=== PATIENT | male | born 1955 | race African-American/Black ===

== ENCOUNTER 2017-09-12 19:54 | Inpatient (IN) | payer OTHER ==
[2017-09-12 20:36] LABS: Bilirubin Negative (Negative); Blood, Urine Small (Negative); Clarity CLEAR (Clear); Glucose, Urine (Dipstick) Negative (Negative); Leukocyte Large (Negative); Nitrite Negative (Negative); Protein, Urine (Dipstick) Negative (Neg-Trace); pH, Urine 5.5 (5.0-9.0)
[2017-09-12 20:38] LABS: Bacteria/HPF None Seen HPF (None Seen); Hyaline Casts/LPF 7-10 HYALINE CAST LPF (0-3 Hyaline); Pathc Cast-AUWi Flag 2.03 (0-2.49); RBC/HPF 0-3 HPF (0-3); Squamous Epithelial 0-3 HPF (0-3); WBC/HPF 21-50 HPF (0-3)
--- NOTE | 2017-09-12 21:08 | RAD ---
PORTABLE AP CHEST X-RAY: 09/12/17 HISTORY: Altered mental status. FINDINGS: The cardiac silhouette and pulmonary vasculature are within normal limits. The lungs are clear. Greer us structures are intact. IMPRESSION: No acute cardiopulmonary process. POS: BOOGIEH
[2017-09-12] MEDS ORDERED: Benztropine Mesylate 2 MG/2 ML VIAL IVP SCH ×2 (21:30)
[2017-09-12] MEDS ORDERED: cefTRIAXone\\ROCEPHIN 2 GM in Sodium Chloride 0.9% 100 ML IVPB SCH (21:30)
[2017-09-12 21:34] LABS: ALT (SGPT) 25 U/L (8-55); AST (SGOT) 39 U/L (5-34); Alkaline Phosphatase 97 U/L (40-150); Anion Gap 15 mmol/L (10-20); BUN (Urea Nitrogen) 11 mg/dL (8.4-25.7); Bilirubin, Total 1.1 mg/dL (0.2-1.2); CK (CPK) 733 U/L (30-200); Calc. Creatinine Clearance 0 mL/min (70-130); Calcium 9.2 mg/dL (7.8-10.44); Carbon Dioxide 22 mmol/L (22-29); Chloride 107 mmol/L (98-107); Estimated GFR-MDRD 82; Globulin 2.9 g/dL (2.4-3.5); Glucose 80 mg/dL (70-105); Potassium 4.1 mmol/L (3.5-5.1); Protein, Total 6.9 g/dL (6.0-8.3); Sodium 140 mmol/L (136-145)
[2017-09-12 21:37] LABS: CKMB 4.8 ng/mL (0-6.6)
[2017-09-12 21:41] LABS: Band 2 % (5-11); Eosinophils 4 % (0-10); Hemoglobin 13.1 g/dL (14.0-18.0); Lymphocytes 25 % (21-51); MDiff Complete? YES; Macrocytosis SLIGHT = 6-15 cells (100X) (0-5/hpf); Mean Corpuscular HGB CONC 33.6 g/dL (32.0-36.0); Mean Corpuscular Hemoglobin 31.9 pg (27.0-31.0); Mean Corpuscular Volume 94.9 fl (80.0-94.0); Mean Platelet Volume 7.5 fL (7.4-10.4); Monocytes 4 % (0-10); Neutrophil 65 % (42-75); PLT Morphology Comment Appears Adequate; Platelet Count 147 thou/uL (130-400); Red Blood Cell (RBC) Count 4.11 mill/uL (4.70-6.10); White Blood Cell (WBC) Count 8.4 thou/uL (4.8-10.8)
[2017-09-12 21:44] LABS: Troponin I 0.031 ng/mL (< 0.028)
--- NOTE | 2017-09-12 21:45 | CT ---
EXAM: NONCONTRAST HEAD CT 09/12/17 HISTORY: Altered mental status. COMPARISON: None. TECHNIQUE: Noncontrast head CT is performed from skull base to skull vertex. FINDINGS: Note is made of a cavum septum pellucidum and cavum vergae. Ventricular system has an upper normal ap pearance. No evidence of hydrocephalus. No parenchymal hemorrhage. No extra-axial hematoma. No midlin e shift. Basilar cisterns are patent. Brain volume is age appropriate. Cortical mann-white matter dif ferentiation is preserved. Cavernous carotid atherosclerosis is noted. Calvarium is intact. Adequate aeration of the sinuses and mastoid air cells. IMPRESSION: No acute intracranial process. POS: PPP
[2017-09-13] MEDS ORDERED: Sodium Chloride 0.9% 1,000 ML IV SCH (00:09)
[2017-09-13] MEDS ORDERED: Ondansetron HCl/PF 4 MG/2 ML Vial IVP PRN (00:09)
[2017-09-13] MEDS ORDERED: Ondansetron ODT 4 MG TAB SL PRN (00:09)
[2017-09-13 00:48] LABS: Troponin I 0.034 ng/mL (< 0.028)
[2017-09-13 01:36] LABS: Lactic Acid 0.9 mmol/L (0.5-2.2)
[2017-09-13] MEDS ORDERED: Acetaminophen 650 MG Suppository PR PRN (02:50)
[2017-09-13] MEDS ORDERED: Senokot 8.6 MG TAB PO PRN (02:50)
[2017-09-13] MEDS ORDERED: Acetaminophen 325 MG TAB PO PRN (02:50)
[2017-09-13] MEDS ORDERED: Nitroglycerin 0.4 MG TAB (25 Tab Bottle) PO PRN (02:50)
[2017-09-13] MEDS ORDERED: Bisacodyl 10 MG SUPP PR PRN (02:50)
[2017-09-13 03:11] LABS: #Eosinphils 0.5 thou/uL (0.0-0.7); #Lymphocytes 2.1 thou/uL (1.20-3.40); #Monocytes 0.6 thou/uL (0.11-0.59); #Neutrophils 3.9 thou/uL (1.40-6.50); %Basophils 0.7 % (0.0-1.0); %Eosinophils 6.7 % (0.0-10.0); %Lymphocytes 29.3 % (21.0-51.0); %Monocytes 8.5 % (0.0-10.0); %Neutrophils 54.9 % (42.0-75.0); Hemoglobin 11.4 g/dL (14.0-18.0); Mean Corpuscular HGB CONC 34.6 g/dL (32.0-36.0); Mean Corpuscular Hemoglobin 32.3 pg (27.0-31.0); Mean Corpuscular Volume 93.1 fl (80.0-94.0); Mean Platelet Volume 6.7 fL (7.4-10.4); Platelet Count 146 thou/uL (130-400); RBC Distribution Width 10.8 % (11.5-14.5); Red Blood Cell (RBC) Count 3.53 mill/uL (4.70-6.10)
--- NOTE | 2017-09-13 03:23 | HP ---
DATE OF ADMISSION: 09/13/2017 Patient was seen and examined on 09/13/2017 PRIMARY CARE PHYSICIAN: Dr. Marie at [facility]. CHIEF COMPLAINT: Altered mentation. HISTORY OF PRESENT ILLNESS: Patient is a 62-year-old male with Parkinson disease, schizoaffective disorder, chronic indwelling Neal catheter presented by EMS with altered mentation that has been ongoing for last 2-3 weeks. Patient had multiple falls. He is not eating and drinking. He has been lethargic and more stiff than usual. Due to poor oral intake, there has been ongoing plans for PEG tube feeding. At this time, there is no family at the bedside. History obtained from the review of ER records. In the emergency room, his initial vital signs showed temperature 99.6, respirations 20, pulse of 85 with blood pressure of 133/77 with O2 saturation of 97% on room air. His urinalysis showed 21-50 wbc's with large amount of leukocyte esterase. Troponins were in the indeterminate range at 0.031 with CK of 733. WBC was normal at 8.4. He received IV fluids, Rocephin, and Cogentin in the emergency room. PAST MEDICAL HISTORY: 1. Schizoaffective disorder. 2. Depression. 3. History of UTIs. 4. Parkinson disease. 5. Hyperlipidemia. 6. Chronic indwelling Neal catheter for urinary retention. 7. Chronic constipation. 8. Hyperlipidemia. PAST SURGICAL HISTORY: Suprapubic catheter placement. ALLERGIES: No known drug allergies. CURRENT HOME MEDICATIONS: Per longterm record Lexapro 10 mg at bedtime, Haldol 2.5 mg at bedtime. Please note that Haldol dose was reduced 2 days ago from 5 mg. Omeprazole 20 mg daily, simvastatin 20 mg at bedtime, DuoNebs as needed, lactulose as needed, Senokot as needed, Keflex 500 mg t.i.d. for recently diagnosed UTI, Cogentin 0.5 b.i.d. SOCIAL HISTORY: Patient currently lives in a long-term facility. No smoking, alcohol, drug use reported. FAMILY HISTORY AND REVIEW OF SYSTEMS: Cannot be obtained from the patient due to current cognitive status. PHYSICAL EXAMINATION: VITAL SIGNS: As discussed above. GENERAL: A 62-year-old male with altered mentation. Not following commands. HEENT: Head atraumatic, normocephalic. Sclerae anicteric. Dry mucous membrane. No oral lesion. NECK: Supple. No JVD, no carotid bruit. LUNGS: Clear to auscultation bilaterally. No wheezing, rales, or rhonchi. HEART: S1, S2 present, irregularly irregular. No murmur, rubs, or gallops. ABDOMEN: Soft. Bowel sounds present. No rebound or guarding. EXTREMITIES: No edema or calf tenderness. NEUROLOGIC: There is generalized hypertonia. Patient is alert and awake. He is not following any verbal commands. Rest of the neurological and psychiatry examination could not be done due to current cognitive status. SKIN: Warm and dry. LYMPH NODES: No palpable lymph nodes in the neck. PERIPHERAL VASCULAR: Radial pulses palpable bilaterally, low volume. LABORATORY FINDINGS: As discussed above. CK was 733. Chest x-ray by my review was negative for infiltrates. CT scan of the brain was negative for acute findings. EKG by my review showed SR with PACs/nonspecific ST-T wave changes. IMPRESSION: 1. Toxic metabolic encephalopathy, suspected secondary to catheter-associated urinary tract infection and dehydration. 2. Chronic kidney disease, stage 2. 3. Elevated troponins in the indeterminate range, probably secondary to dehydration. 4. Elevated CK, probably secondary to recurrent falls. 5. 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 Patient also has history of Parkinsonism. 6. Chronic anemia, microcytic. 7. Hyperlipidemia. 8. History of chronic constipation. PLAN: Patient will be monitored on the telemetry unit. An echocardiogram will be obtained due to elevated troponins as well as new-onset atrial fibrillation. We will hold anticoagulation for now until discussed with the family. Empiric antibiotics will be started for urinary tract infection. We will trend the troponins. We will resume home medications and hope that patient will tolerate p.o. Vital signs q.4 hourly. Patient will benefit from Neurology consultation if his mentation does not improve over the next 24 hours. We will discuss the plan of care with the family when they arrive. CODE STATUS: FULL CODE per longterm records. MTDD
[2017-09-13 03:34] LABS: Troponin I 0.041 ng/mL (< 0.028)
[2017-09-13] MEDS: Sodium Chloride 0.9% 1,000 ML IV SCH ×2 (03:38→14:22)
[2017-09-13 03:48] LABS: ALT (SGPT) 21 U/L (8-55); AST (SGOT) 31 U/L (5-34); Albumin 3.7 g/dL (3.5-5.0); Alkaline Phosphatase 83 U/L (40-150); Anion Gap 11 mmol/L (10-20); BUN (Urea Nitrogen) 10 mg/dL (8.4-25.7); Bilirubin, Total 0.9 mg/dL (0.2-1.2); Calc. Creatinine Clearance 73 mL/min (70-130); Calcium 8.6 mg/dL (7.8-10.44); Carbon Dioxide 24 mmol/L (22-29); Chloride 108 mmol/L (98-107); Estimated GFR-MDRD 90; Globulin 2.1 g/dL (2.4-3.5); Glucose 75 mg/dL (70-105); Magnesium 1.7 mg/dL (1.6-2.6); Phosphorus 2.4 mg/dL (2.3-4.7); Potassium 3.3 mmol/L (3.5-5.1); Protein, Total 5.8 g/dL (6.0-8.3); Sodium 140 mmol/L (136-145)
[2017-09-13 04:28] LABS: Folate (Folic Acid) 12.5 ng/mL (7.0-31.4)
[2017-09-13] MEDS: Enoxaparin Sodium 30 MG/0.3 ML SYRINGE SC SCH (08:37)
[2017-09-13] MEDS: cefTRIAXone\\ROCEPHIN 1 GM in Sodium Chloride 0.9% 10 ML SLOW IVP SCH (08:37)
[2017-09-13] MEDS: Famotidine/PF 20 mg/2ml Vial SLOW IVP SCH ×2 (08:41→20:55)
[2017-09-13] MEDS ORDERED: cefTRIAXone\\ROCEPHIN 2 GM in Sodium Chloride 0.9% 100 ML IVPB SCH (09:00)
[2017-09-13] MEDS: Saccharomyces boulardii 250 MG CAP PO SCH (09:02)
[2017-09-13] MEDS: Docusate 100 MG CAP PO SCH ×2 (09:02→23:36)
[2017-09-13] MEDS: Aspirin 325 MG TAB PO SCH (09:02)
--- NOTE | 2017-09-13 11:06 | CON ---
DATE OF CONSULTATION: 09/13/2017 HISTORY OF PRESENT ILLNESS: This is a 62-year-old gentleman with a history of psychiatric issues as well as some parkinsonian features. He was previously seen by Dr. Benito in 03/2016 for mental status changes. The patient apparently is a [place] [facility] resident. He has not been responding to the staff and is appropriate at his usual level. He was not been eating or drinking well. He was brought in for possible dehydration. Since admission, he has not had any unusual physical events. His vital si gns have been stable. He has been afebrile. He is lying in bed, awake, holding onto the bed rail. He was nonverbal. His tone is symmetric. His face appears to be symmetric. He has some spontaneous movements bilaterally. No tremors or myoclonus were noted. He had a CT scan of the brain done, which did not show any acute changes. LABORATORY STUDIES: Showed a normal white count and serum chemistries. SUMMARY: This is a 62-year-old gentleman with psychiatric issues and variable responsiveness documen pauly in the past. I do not see any acute issues with him. There was some discussion as to whether a PEG tube needs to be placed, which would seem to be appropriate given his ongoing dementia or psychia tric problems that cause anorexia. I do not see any other treatment that needs to be instituted at t his point.
--- NOTE | 2017-09-13 14:08 | PDOC.PN ---
- Subjective Encounter Start Date: 09/13/17 Encounter Start Time: 10:30 Subjective: awake, not oriented -: does not follow verbal stimuli - Objective Resuscitation Status: Resuscitation Status FULL:Full Resuscitation MAR Reviewed: Yes Vital Signs & Weight: Vital Signs (12 hours) Temp Pulse Resp BP BP Pulse Ox 09/13/17 11:54 98.3 F 83 16 112/65 96 09/13/17 08:00 98.3 F 83 16 128/63 98 09/13/17 04:00 97.9 F 82 16 120/59 L 98 Weight Weight 159 lb 4.8 oz I&O: 09/12/17 09/13/17 09/14/17 06:59 06:59 06:59 Intake Total 634 Output Total 525 Balance 109 Result Diagrams: 09/13/17 03:02 09/13/17 03:02 Phys Exam - Physical Examination HEENT: PERRLA, sclera anicteric Neck: no JVD, supple Respiratory: no wheezing, no rales Cardiovascular: RRR, no significant murmur Gastrointestinal: soft, non-tender, positive bowel sounds Musculoskeletal: no edema, pulses present Neurological: non-focal has increased tone in all 4 extremities Dx/Plan (1) Rhabdomyolysis Code(s): M62.82 - RHABDOMYOLYSIS Status: Acute Qualifiers: Encounter type: subsequent encounter (2) UTI (urinary tract infection) Status: Acute Qualifiers: Urinary tract infection type: catheter-associated UTI (3) Demand ischemia of myocardium Code(s): I24.8 - OTHER FORMS OF ACUTE ISCHEMIC HEART DISEASE Status: Acute (4) Afib Code(s): I48.91 - UNSPECIFIED ATRIAL FIBRILLATION Status: Chronic Qualifiers: Atrial fibrillation type: chronic Qualified Code(s): I48.2 - Chronic atrial fibrillation (5) Encephalopathy acute Code(s): G93.40 - ENCEPHALOPATHY, UNSPECIFIED Status: Acute Comment: metabolic encephalopathy (6) FTT (failure to thrive) in adult Status: Chronic (7) Schizophrenia Code(s): F20.9 - SCHIZOPHRENIA, UNSPECIFIED Status: Chronic Qualifiers: Schizophrenia type: unspecified Qualified Code(s): F20.9 - Schizophrenia, unspecified (8) Hyperlipidemia Code(s): E78.5 - HYPERLIPIDEMIA, UNSPECIFIED Status: Chronic Qualifiers: Hyperlipidemia type: unspecified Qualified Code(s): E78.5 - Hyperlipidemia , unspecified (9) Dehydration Code(s): E86.0 - DEHYDRATION Status: Acute - Plan d/w .Juliana LUA, gave a full update of labs and plan -: gentle hydration -: is on ceftriaxone, full dose aspirin -: pt has been bedbound from atleast 2 yrs per family, he also has issues with * . -swallowing and family is contemplating peg tube. Will get speech consult when he is more alert/awake Pt at baseline responds by blinking his eyes/few words. Review of Systems - Medications/Allergies Allergies/Adverse Reactions: Allergies Allergy/AdvReac Type Severity Reaction Status Date / Time No Known Allergies Allergy Unverified 03/25/16 17:43 Medications: Current Medications Acetaminophen (Tylenol) 650 mg PO Q4H PRN PRN Reason: Headache/Fever or Pain Acetaminophen (Tylenol) 650 mg [place] Q4H PRN PRN Reason: Headache/Fever or Pain Albuterol/Ipratropium (Duoneb) 3 ml NEB QID PRN PRN Reason: SOB wheezing Aspirin (Aspirin) 325 mg PO DAILY [facility] Last Admin: 09/13/17 09:02 Dose: Not Given Bisacodyl (Dulcolax) 10 mg [place] Q24H PRN PRN Reason: Constipation Docusate Sodium (Colace) 100 mg PO BID [facility] Last Admin: 09/13/17 09:02 Dose: Not Given Enoxaparin Sodium (Lovenox) 30 mg SC 0900 [facility] Last Admin: 09/13/17 08:37 Dose: 30 mg Famotidine (Pepcid) 20 mg SLOW IVP Q12HR [facility] Last Admin: 09/13/17 08:41 Dose: 20 mg Ceftriaxone Sodium 1 gm/ (Sodium Chloride) 10 mls @ 120 mls/hr SLOW IVP DAILY [facility] Last Admin: 09/13/17 08:37 Dose: 10 mls Sodium Chloride (Normal Saline 0.9%) 1,000 mls @ 75 mls/hr IV .[id number] [facility] Last Admin: 09/13/17 03:38 Dose: Not Given Influenza Virus Vaccine (Fluzone Quad [id number] Syringe) 0.5 ml IM .ONCE ONE Stop: 09/14/17 09:01 Nitroglycerin (Nitrostat) 0.4 mg PO Q5MIN PRN PRN Reason: Chest Pain Saccharomyces Boulardii (Florastor) 250 mg PO DAILY [facility] Last Admin: 09/13/17 09:02 Dose: Not Given Senna (Senokot) 2 tab PO HSPRN PRN PRN Reason: Constipation Sodium Chloride (Flush - Normal Saline) 10 ml IVF Q12HR [facility] Last Admin: 09/13/17 09:02 Dose: 10 ml Sodium Chloride (Flush - Normal Saline) 10 ml IVF PRN PRN PRN Reason: Saline Flush
[2017-09-14] MEDS: Sodium Chloride 0.9% 1,000 ML IV SCH (03:58)
[2017-09-14 06:31] LABS: #Eosinphils 0.3 thou/uL (0.0-0.7); #Lymphocytes 1.4 thou/uL (1.20-3.40); #Monocytes 0.4 thou/uL (0.11-0.59); #Neutrophils 2.9 thou/uL (1.40-6.50); %Basophils 0.7 % (0.0-1.0); %Eosinophils 5.9 % (0.0-10.0); %Lymphocytes 27.2 % (21.0-51.0); %Monocytes 8.5 % (0.0-10.0); %Neutrophils 57.6 % (42.0-75.0); Hemoglobin 10.8 g/dL (14.0-18.0); Mean Corpuscular HGB CONC 32.8 g/dL (32.0-36.0); Mean Corpuscular Hemoglobin 31.5 pg (27.0-31.0); Mean Corpuscular Volume 95.8 fl (80.0-94.0); Mean Platelet Volume 7.6 fL (7.4-10.4); Platelet Count 153 thou/uL (130-400); RBC Distribution Width 10.9 % (11.5-14.5); Red Blood Cell (RBC) Count 3.43 mill/uL (4.70-6.10)
[2017-09-14 06:46] LABS: ALT (SGPT) 18 U/L (8-55); AST (SGOT) 22 U/L (5-34); Albumin 3.5 g/dL (3.5-5.0); Alkaline Phosphatase 77 U/L (40-150); Anion Gap 15 mmol/L (10-20); BUN (Urea Nitrogen) 13 mg/dL (8.4-25.7); Bilirubin, Total 0.9 mg/dL (0.2-1.2); CK (CPK) 237 U/L (30-200); Calc. Creatinine Clearance 63 mL/min (70-130); Calcium 8.3 mg/dL (7.8-10.44); Carbon Dioxide 20 mmol/L (22-29); Chloride 112 mmol/L (98-107); Estimated GFR-MDRD 75; Globulin 2.1 g/dL (2.4-3.5); Magnesium 1.8 mg/dL (1.6-2.6); Phosphorus 2.7 mg/dL (2.3-4.7); Potassium 3.5 mmol/L (3.5-5.1); Protein, Total 5.6 g/dL (6.0-8.3); Sodium 143 mmol/L (136-145)
[2017-09-14 06:51] LABS: Glucose 54 mg/dL (70-105)
[2017-09-14] MEDS ORDERED: Dextrose 50% Abboject 50 ML SYRINGE ONE (06:57)
[2017-09-14] MEDS ORDERED: FLU VACC QS2017-18 36 mo. & older 0.5 ML SYRINGE IM ONE (09:00)
[2017-09-14] MEDS: Aspirin 325 MG TAB PO SCH (09:49)
[2017-09-14] MEDS: Famotidine/PF 20 mg/2ml Vial SLOW IVP SCH ×2 (09:50→22:08)
[2017-09-14] MEDS: Enoxaparin Sodium 30 MG/0.3 ML SYRINGE SC SCH (09:53)
[2017-09-14] MEDS: Docusate 100 MG CAP PO SCH ×2 (09:54→22:07)
[2017-09-14] MEDS: Saccharomyces boulardii 250 MG CAP PO SCH (09:54)
[2017-09-14] MEDS: cefTRIAXone\\ROCEPHIN 1 GM in Sodium Chloride 0.9% 10 ML SLOW IVP SCH (09:56)
[2017-09-14] MEDS: D5 1/2 NS w/20 mEq KCL 1,000 ML IV SCH ×2 (10:20→22:09)
--- NOTE | 2017-09-14 18:18 | PDOC.PN ---
- Subjective Encounter Start Date: 09/14/17 Encounter Start Time: 10:30 Patient seen and examined. No change in mentation. No overnight events - Objective Resuscitation Status: Resuscitation Status FULL:Full Resuscitation MAR Reviewed: Yes Vital Signs & Weight: Vital Signs (12 hours) Temp Pulse Resp BP BP Pulse Ox 09/14/17 16:48 98.6 F 75 129/74 09/14/17 16:46 98.6 F 75 129/74 09/14/17 12:00 74 16 142/70 H 09/14/17 08:00 98.4 F 77 16 106/63 96 Weight Weight 149 lb 2 oz I&O: 09/13/17 09/14/17 09/15/17 06:59 06:59 06:59 Intake Total 634 900 Output Total 525 250 Balance 109 650 Result Diagrams: 09/14/17 05:56 09/14/17 05:56 Additional Labs: Accuchecks 09/14/17 14:24 POC Glucose 75 EKG Reviewed by me: Yes (Tele SR) Phys Exam - Physical Examination Constitutional: NAD Respiratory: no wheezing, no rhonchi Cardiovascular: RRR, no rub Gastrointestinal: soft, positive bowel sounds Musculoskeletal: no edema Neuro/Psych - No changes Dx/Plan - Plan plan discussed w/ family, DVT proph w/lovenox, DVT proph w/SCDs IMPRESSION: 1. Toxic metabolic encephalopathy, suspected secondary to catheter-associated urinary tract infection and dehydration. 2. Chronic kidney disease, stage 2 / Hypokalemia / Hypoglycemia 3. Elevated troponins in the indeterminate range, probably secondary to dehydration. 4. Elevated CK, probably secondary to recurrent falls. improving 5. 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 6. Chronic anemia, microcytic. 7. Hyperlipidemia. 8. History of chronic constipation / Probably Moderate PEM PLAN: * Change IV fluid to D5 1/2 NS due to hypoglycemia * Add glucose check Q6h * AM labs * Cont current meds as below * Neuro input appreciated * NPO per JIG INSPECTOR * Consult GI for PEG per family request * Consult Palliative care Review of Systems - Review of Systems Cardiovascular: other. negative: chest pain, palpitations, orthopnea, paroxysmal nocturnal dyspnea, edema, light headedness Gastrointestinal: negative: Nausea, Vomiting, Abdominal Pain, Diarrhea, Constipation, Melena, Hematochezia - Medications/Allergies Allergies/Adverse Reactions: Allergies Allergy/AdvReac Type Severity Reaction Status Date / Time No Known Allergies Allergy Unverified 03/25/16 17:43 Medications: Current Medications Acetaminophen (Tylenol) 650 mg PO Q4H PRN PRN Reason: Headache/Fever or Pain Acetaminophen (Tylenol) 650 mg [place] Q4H PRN PRN Reason: Headache/Fever or Pain Albuterol/Ipratropium (Duoneb) 3 ml NEB QID PRN PRN Reason: SOB wheezing Aspirin (Aspirin) 325 mg PO DAILY [facility] Last Admin: 09/14/17 09:49 Dose: Not Given Bisacodyl (Dulcolax) 10 mg [place] Q24H PRN PRN Reason: Constipation Docusate Sodium (Colace) 100 mg PO BID [facility] Last Admin: 09/14/17 09:54 Dose: Not Given Enoxaparin Sodium (Lovenox) 30 mg SC 0900 [facility] Last Admin: 09/14/17 09:53 Dose: 30 mg Famotidine (Pepcid) 20 mg SLOW IVP Q12HR [facility] Last Admin: 09/14/17 09:50 Dose: 20 mg Ceftriaxone Sodium 1 gm/ (Sodium Chloride) 10 mls @ 120 mls/hr SLOW IVP DAILY [facility] Last Admin: 09/14/17 09:56 Dose: 10 mls Potassium Chloride/Dextrose/Sod Cl (D5 1/2 Ns W/20 Meq Kcl) 1,000 mls @ 75 mls/ hr IV .[id number] [facility] Last Admin: 09/14/17 10:20 Dose: 1,000 mls Nitroglycerin (Nitrostat) 0.4 mg PO Q5MIN PRN PRN Reason: Chest Pain Saccharomyces Boulardii (Florastor) 250 mg PO DAILY [facility] Last Admin: 09/14/17 09:54 Dose: Not Given Senna (Senokot) 2 tab PO HSPRN PRN PRN Reason: Constipation Sodium Chloride (Flush - Normal Saline) 10 ml IVF Q12HR [facility] Last Admin: 09/14/17 09:53 Dose: 10 ml Sodium Chloride (Flush - Normal Saline) 10 ml IVF PRN PRN PRN Reason: Saline Flush
[2017-09-15 06:02] LABS: #Eosinphils 0.3 thou/uL (0.0-0.7); #Lymphocytes 1.6 thou/uL (1.20-3.40); #Monocytes 0.5 thou/uL (0.11-0.59); #Neutrophils 2.7 thou/uL (1.40-6.50); %Basophils 0.5 % (0.0-1.0); %Eosinophils 6.5 % (0.0-10.0); %Lymphocytes 31.4 % (21.0-51.0); %Monocytes 9.6 % (0.0-10.0); Hemoglobin 11.8 g/dL (14.0-18.0); Mean Corpuscular HGB CONC 32.6 g/dL (32.0-36.0); Mean Corpuscular Hemoglobin 30.4 pg (27.0-31.0); Mean Corpuscular Volume 93.1 fl (80.0-94.0); Mean Platelet Volume 7.7 fL (7.4-10.4); Platelet Count 170 thou/uL (130-400); RBC Distribution Width 10.7 % (11.5-14.5); White Blood Cell (WBC) Count 5.1 thou/uL (4.8-10.8)
[2017-09-15 06:11] LABS: Anion Gap 12 mmol/L (10-20); BUN (Urea Nitrogen) 9 mg/dL (8.4-25.7); Calc. Creatinine Clearance 62 mL/min (70-130); Carbon Dioxide 22 mmol/L (22-29); Chloride 110 mmol/L (98-107); Estimated GFR-MDRD 74; Glucose 85 mg/dL (70-105); Potassium 3.8 mmol/L (3.5-5.1); Sodium 140 mmol/L (136-145)
[2017-09-15] MEDS: Saccharomyces boulardii 250 MG CAP PO SCH (07:04)
[2017-09-15] MEDS: Aspirin 325 MG TAB PO SCH (07:04)
[2017-09-15] MEDS: Docusate 100 MG CAP PO SCH ×2 (07:04→20:53)
[2017-09-15] MEDS: cefTRIAXone\\ROCEPHIN 1 GM in Sodium Chloride 0.9% 10 ML SLOW IVP SCH (09:24)
[2017-09-15] MEDS: Enoxaparin Sodium 30 MG/0.3 ML SYRINGE SC SCH (09:25)
[2017-09-15] MEDS: D5 1/2 NS w/20 mEq KCL 1,000 ML IV SCH (09:25)
[2017-09-15] MEDS: Famotidine/PF 20 mg/2ml Vial SLOW IVP SCH ×2 (09:25→20:53)
[2017-09-15] MEDS ORDERED: Midazolam HCl 2 mg/2 ml Vial ONE (12:35)
[2017-09-15] MEDS ORDERED: Fleet Enema 133 ML BOT PR SCH (12:45)
--- NOTE | 2017-09-15 13:05 | OP ---
DATE OF PROCEDURE: 09/15/2017 SURGEON: Mark Dillard M.D. PREOPERATIVE DIAGNOSES: 1. Poor p.o. intake. 2. PEG tube request has been apparently an issue for several weeks now. Patient has been seen at [facility] and there were plans for an outpatient PEG tube placement. POSTOPERATIVE DIAGNOSES: 1. Normal esophagus. 2. Normal stomach. 3. Normal duodenum to the third portion. 4. PEG tube placed by Ponsky pull technique. 5. Rectal exam was performed showed a large soft fecal impaction. RECOMMENDATIONS: Can begin tube feeds today in 4 hours. Can use PEG for feeding now. The patient n eeds enemas and bowel regimen for impaction. ANESTHESIA: TIVA. PROCEDURE IN DETAIL: After the patient's family was informed of the risks, benefits and possible com plications of endoscopy including perforation, bleeding, reaction to medication, and aspiration, info rmed consent was obtained. The patient was brought to the endoscopy suite where he was sedated in a gradual fashion. Once this was performed, a rectal exam was performed which was normal except for a large soft fecal impaction. Gloves were changed and the upper endoscopy was performed with findings of a normal esophagus, stomach, and duodenum. Adequate place for PEG tube was identified by transill umination and finger indentation. Abdomen was prepped and draped in the usual sterile fashion. A PE G tube placed, by Ponsky pull technique. The scope was removed. The patient tolerated the procedure well with no complications.
[2017-09-15] MEDS ORDERED: Propofol 200 MG/20 ML VIAL ONE (16:02)
--- NOTE | 2017-09-15 18:21 | EKG ---
Test Reason : Blood Pressure : / mmHG Vent. Rate : 082 BPM Atrial Rate : 141 BPM P-R Int : 000 ms QRS Dur : 122 ms QT Int : 412 ms P-R-T Axes : 000 097 073 degrees QTc Int : 481 ms Atrial fibrillation with a competing junctional pacemaker with premature ventricular or aberrantly co nducted complexes Right bundle branch block Abnormal ECG No previous ECGs available Confirmed by AYALA MCWILLIAMS, DR. Alfred ([id number]) on 09/15/2017 6:20:58 PM Referred By: CARI Confirmed By:DR. Aubrie CAI MD
--- NOTE | 2017-09-15 20:26 | PDOC.PN ---
- Subjective Encounter Start Date: 09/15/17 Encounter Start Time: 10:00 Patient seen and examined. No significant change in mentation. No overnight events - Objective Resuscitation Status: Resuscitation Status FULL:Full Resuscitation MAR Reviewed: Yes Vital Signs & Weight: Vital Signs (12 hours) Temp Pulse Resp BP BP Pulse Ox 09/15/17 15:56 98.1 F 74 18 132/76 99 09/15/17 13:11 97.1 F L 80 16 101/63 97 Weight Admit Weight 148 lb 8 oz Weight 142 lb 4.8 oz I&O: 09/14/17 09/15/17 09/16/17 06:59 06:59 06:59 Intake Total 900 1800 Output Total 250 1600 1375 Balance 650 200 -1375 Result Diagrams: 09/15/17 05:18 09/15/17 05:18 Additional Labs: Accuchecks 09/15/17 09/15/17 09/14/17 16:27 11:07 16:36 POC Glucose 88 93 80 09/14/17 09/14/17 09/14/17 14:39 11:31 07:23 POC Glucose 75 80 208 H EKG Reviewed by me: Yes (Tele SR) Phys Exam - Physical Examination Constitutional: NAD Respiratory: no wheezing, no rhonchi Cardiovascular: RRR, no rub Gastrointestinal: soft, non-tender, positive bowel sounds Musculoskeletal: no edema Neuro/Psych - Cannot assess due to current mentation Dx/Plan - Plan continue antibiotics, social work lecturer, speech therapy, DVT proph w/SCDs IMPRESSION: 1. Toxic metabolic encephalopathy, suspected secondary to catheter-associated urinary tract infection and dehydration. 2. Chronic kidney disease, stage 2 / Hypokalemia / Hypoglycemia 3. Elevated troponins in the indeterminate range, probably secondary to dehydration. 4. Elevated CK, probably secondary to recurrent falls. improving 5. 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 All meds on hold 6. Chronic anemia, microcytic. 7. Hyperlipidemia. 8. History of chronic constipation / Probably Moderate PEM / Swallow dys PLAN: * Cont IV fluid * PEG tube per family req - Consult GI * Cont glucose check Q6h * Cont current meds as below * Palliative care team following * . Review of Systems - Review of Systems Other: Cannot obtain due to current cognition - Medications/Allergies Allergies/Adverse Reactions: Allergies Allergy/AdvReac Type Severity Reaction Status Date / Time No Known Allergies Allergy Unverified 03/25/16 17:43 Medications: Current Medications Acetaminophen (Tylenol) 650 mg PO Q4H PRN PRN Reason: Headache/Fever or Pain Acetaminophen (Tylenol) 650 mg [place] Q4H PRN PRN Reason: Headache/Fever or Pain Albuterol/Ipratropium (Duoneb) 3 ml NEB QID PRN PRN Reason: SOB wheezing Aspirin (Aspirin) 325 mg PO DAILY [facility] Last Admin: 09/15/17 07:04 Dose: Not Given Bisacodyl (Dulcolax) 10 mg [place] Q24H PRN PRN Reason: Constipation Docusate Sodium (Colace) 100 mg PO BID [facility] Last Admin: 09/15/17 07:04 Dose: Not Given Enoxaparin Sodium (Lovenox) 30 mg SC 0900 [facility] Last Admin: 09/15/17 09:25 Dose: 30 mg Famotidine (Pepcid) 20 mg SLOW IVP Q12HR [facility] Last Admin: 09/15/17 09:25 Dose: 20 mg Ceftriaxone Sodium 1 gm/ (Sodium Chloride) 10 mls @ 120 mls/hr SLOW IVP DAILY [facility] Last Admin: 09/15/17 09:24 Dose: 10 mls Potassium Chloride/Dextrose/Sod Cl (D5 1/2 Ns W/20 Meq Kcl) 1,000 mls @ 75 mls/ hr IV .[id number] [facility] Last Admin: 09/15/17 09:25 Dose: 1,000 mls Nitroglycerin (Nitrostat) 0.4 mg PO Q5MIN PRN PRN Reason: Chest Pain Saccharomyces Boulardii (Florastor) 250 mg PO DAILY [facility] Last Admin: 09/15/17 07:04 Dose: Not Given Senna (Senokot) 2 tab PO HSPRN PRN PRN Reason: Constipation Sodium Chloride (Flush - Normal Saline) 10 ml IVF Q12HR [facility] Last Admin: 09/15/17 09:25 Dose: 10 ml Sodium Chloride (Flush - Normal Saline) 10 ml IVF PRN PRN PRN Reason: Saline Flush
[2017-09-15] MEDS ORDERED: Lorazepam 2 MG/ML VIAL SLOW IVP PRN (20:43)
[2017-09-15] MEDS ORDERED: Lorazepam 2 MG/ML VIAL SLOW IVP SCH (20:45)
[2017-09-16] MEDS: D5 1/2 NS w/20 mEq KCL 1,000 ML IV SCH (04:27)
--- NOTE | 2017-09-16 08:40 | CON ---
DATE OF CONSULTATION: 09/15/2017 GI CONSULT REASON FOR CONSULTATION: Request for PEG tube placement. HISTORY OF PRESENT ILLNESS: Se Gaines is a 62-year-old gentleman who apparently has had a lifelong history of mental retardation according to his family who are at the bedside. He was born this way. In chart note, he has some history of schizoaffective disorder and some seizure disorder possibly. We have been asked to see regarding PEG tube placement. He is not eating. He was admitted to the [facility] on 09/13/2017, altered mentation has been going for 2-3 weeks. Apparently, the patient had m ultiple falls, had not been eating or drinking. He has been more lethargic and stiff than usual acco rding to admission note and family history. He had been eating and has been being fed at the retirement, but seems that with this problem, he has been in and out of the hospital at [facility] there was actually plans in the outpatient settings to place a PEG tube. At this time we brought h im here this time for a second opinion. He does not communicate verbally. The family at bedside has not noticed any abdominal pain, I decided to go and place a PEG tube as he has not been able to eat or drink for several weeks now, getting very minimal p.o. intake. PAST MEDICAL HISTORY: Schizoaffective disorder, depression, history of TIAs, Parkinson's, hyperlipid emia, chronic renal function, chronic constipation, hyperlipidemia, history of chronic mental retarda tion of some sort. PAST SURGICAL HISTORY: Suprapubic catheter placement. ALLERGIES: None known. MEDICATIONS: At retirement include Haldol, Lexapro, omeprazole, simvastatin, DuoNebs, lactulose, S enokot, Keflex, and Cogentin. SOCIAL HISTORY: The patient lives in a long-term facility. PRESENT MEDICATIONS: Tylenol, DuoNeb, aspirin, Dulcolax, ceftriaxone, Colace, Lovenox, Pepcid, and S accharomyces boulardii. ALLERGIES: None known. PHYSICAL EXAMINATION: GENERAL: Patient is resting in bed. He has got some contractures, lays on his left side. VITAL SIGNS: Temperature is 98, pulse 70, respiration rate 18. ABDOMEN: Soft, nontender, no palpable hepatosplenomegaly. EXTREMITIES: No clubbing, cyanosis or edema. SKIN: Warm and dry. LABORATORY DATA AND IMAGING DATA: White count 5.1, hemoglobin 11.8, platelet count 170. Sodium 140, potassium 3.8, and chloride 110. Urine shows some ketones, large leukocyte esterase, white blood ce lls. No abdominal imagings done. Previous imaging of the abdomen including a CAT scan of abdomen an d pelvis in 03/2016. At that time, the patient had cholelithiasis. ASSESSMENT: Poor p.o. intake. It is unclear if this is related to his underlying mental disorder, m edications or possible with primary gastrointestinal process. There are no overt signs of inflammati on or infection by labs. B12, folate and liver function tests have been normal. Risks, benefits, an d possible complications of PEG tube placement discussed with the patient's family and they wished to proceed. We will go ahead and place a PEG tube today. I think it would be reasonable to get an ult rasound of gallbladder to make sure there is not any signs of cholecystitis; although, on clinical ex am there does not appear to be any. We will also perform a rectal exam to make sure there is no feca l impaction as he has not been eating well.
[2017-09-16] MEDS: Aspirin 325 MG TAB PO SCH (10:20)
[2017-09-16] MEDS: Saccharomyces boulardii 250 MG CAP PO SCH (10:20)
[2017-09-16] MEDS: Docusate 100 MG CAP PO SCH ×2 (10:20→22:02)
[2017-09-16] MEDS: Famotidine/PF 20 mg/2ml Vial SLOW IVP SCH (10:51)
[2017-09-16] MEDS: Enoxaparin Sodium 30 MG/0.3 ML SYRINGE SC SCH (10:51)
[2017-09-16] MEDS: cefTRIAXone\\ROCEPHIN 1 GM in Sodium Chloride 0.9% 10 ML SLOW IVP SCH (10:52)
[2017-09-16] MEDS ORDERED: D5 1/2 NS w/20 mEq KCL 1,000 ML IV SCH (11:37)
--- NOTE | 2017-09-16 20:13 | PDOC.PN ---
- Subjective Encounter Start Date: 09/16/17 Encounter Start Time: 11:00 Patient seen and examined. No new complaints. No overnight events. Tolerating tube feeds. - Objective Resuscitation Status: Resuscitation Status FULL:Full Resuscitation MAR Reviewed: Yes Vital Signs & Weight: Vital Signs (12 hours) Pulse Pulse Pulse Resp BP BP BP 09/16/17 12:15 67 18 92/58 L 09/16/17 10:10 68 66 93/58 L 115/74 Weight Admit Weight 148 lb 8 oz Weight 148 lb 12.8 oz I&O: 09/15/17 09/16/17 09/17/17 06:59 06:59 06:59 Intake Total 1800 1072 720 Output Total 1600 2100 400 Balance 200 -1028 320 Result Diagrams: 09/15/17 05:18 09/15/17 05:18 Additional Labs: Accuchecks 09/16/17 09/16/17 09/16/17 17:01 11:36 05:49 POC Glucose 105 131 H 107 09/15/17 09/15/17 09/15/17 23:59 06:05 00:44 POC Glucose 99 83 79 09/14/17 20:40 POC Glucose 86 EKG Reviewed by me: Yes Phys Exam - Physical Examination Constitutional: NAD Respiratory: no wheezing, no rhonchi Scat rales at bases Cardiovascular: RRR, no rub Gastrointestinal: soft, non-tender, positive bowel sounds Musculoskeletal: no edema Neurological: moves all 4 limbs Dx/Plan - Plan DVT proph w/SCDs IMPRESSION: 1. Toxic metabolic encephalopathy, suspected secondary to catheter-associated urinary tract infection and dehydration. 2. Chronic kidney disease, stage 2 / Hypokalemia / Hypoglycemia 3. Elevated troponins in the indeterminate range, probably secondary to dehydration. 4. Elevated CK, probably secondary to recurrent falls. improving 5. 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 All meds on hold 6. Chronic anemia, microcytic. 7. Hyperlipidemia. 8. History of chronic constipation / Probably Moderate PEM / Swallow dys s/p PEG tube PLAN: * Cont IV fluid -reduce rate to 50 ml/hr * Cont PEG tube feed * Cont current meds as below * Palliative care team following * Sitter * Transfer to medical Review of Systems - Review of Systems Respiratory: negative: Cough, Dry, Shortness of Breath, Hemoptysis, SOB with Excertion, Pleuritic Pain, Sputum, Wheezing Cardiovascular: negative: chest pain, palpitations, orthopnea, paroxysmal nocturnal dyspnea, edema, light headedness - Medications/Allergies Allergies/Adverse Reactions: Allergies Allergy/AdvReac Type Severity Reaction Status Date / Time No Known Allergies Allergy Unverified 03/25/16 17:43 Medications: Current Medications Acetaminophen (Tylenol) 650 mg PO Q4H PRN PRN Reason: Headache/Fever or Pain Acetaminophen (Tylenol) 650 mg W[place] Q4H PRN PRN Reason: Headache/Fever or Pain Albuterol/Ipratropium (Duoneb) 3 ml NEB QID PRN PRN Reason: SOB wheezing Aspirin (Aspirin) 325 mg PO DAILY [facility] Last Admin: 09/16/17 10:20 Dose: Not Given Bisacodyl (Dulcolax) 10 mg W[place] Q24H PRN PRN Reason: Constipation Docusate Sodium (Colace) 100 mg PO BID [facility] Last Admin: 09/16/17 10:20 Dose: Not Given Enoxaparin Sodium (Lovenox) 30 mg SC 0900 [facility] Last Admin: 09/16/17 10:51 Dose: 30 mg Famotidine (Pepcid) 20 mg PER TUBE BID [facility] Ceftriaxone Sodium 1 gm/ (Sodium Chloride) 10 mls @ 120 mls/hr SLOW IVP DAILY [facility] Last Admin: 09/16/17 10:52 Dose: 10 mls Potassium Chloride/Dextrose/Sod Cl (D5 1/2 Ns W/20 Meq Kcl) 1,000 mls @ 50 mls/ hr IV .Q20H [facility] Last Admin: 09/16/17 12:34 Dose: Not Given Lorazepam (Ativan) 0.5 mg SLOW IVP Q6H PRN PRN Reason: Agitation Nitroglycerin (Nitrostat) 0.4 mg PO Q5MIN PRN PRN Reason: Chest Pain Saccharomyces Boulardii (Florastor) 250 mg PO DAILY [facility] Last Admin: 09/16/17 10:20 Dose: Not Given Senna (Senokot) 2 tab PO HSPRN PRN PRN Reason: Constipation Sodium Chloride (Flush - Normal Saline) 10 ml IVF Q12HR [facility] Last Admin: 09/16/17 10:51 Dose: 10 ml Sodium Chloride (Flush - Normal Saline) 10 ml IVF PRN PRN PRN Reason: Saline Flush Last Admin: 09/15/17 20:53 Dose: 10 ml
[2017-09-16] MEDS: Famotidine 20 MG TAB PER TUBE SCH (22:02)
[2017-09-17] MEDS: Docusate 100 MG CAP PO SCH ×2 (10:16→20:22)
[2017-09-17] MEDS: Aspirin 325 MG TAB PO SCH (10:16)
[2017-09-17] MEDS: Enoxaparin Sodium 30 MG/0.3 ML SYRINGE SC SCH (10:16)
[2017-09-17] MEDS: Famotidine 20 MG TAB PER TUBE SCH ×2 (10:16→20:22)
[2017-09-17] MEDS: Saccharomyces boulardii 250 MG CAP PO SCH (10:16)
[2017-09-17] MEDS: cefTRIAXone\\ROCEPHIN 1 GM in Sodium Chloride 0.9% 10 ML SLOW IVP SCH (11:10)
--- NOTE | 2017-09-17 11:51 | PRG ---
DATE OF SERVICE: 09/16/2017 SUBJECTIVE: Mr. Gaines is tolerating tube feeds. He is nonresponsive. Nurse with him states he has h ad no problems, he is not really coughing or choking. OBJECTIVE: VITAL SIGNS: Temperature 97.4, pulse 67, blood pressure 92/58. ABDOMEN: Soft, nontender. PEG tube site is warm and dry. SKIN: Warm and dry. LABORATORY STUDIES: No labs today. ASSESSMENT: 1. Oropharyngeal dysphagia, altered mental status, unclear etiology. He has had some baseline histo ry of mental retardation. There is some concern he may have a UTI as well. 2. The patient has mild anemia. There are no signs of microcytic indices. RECOMMENDATIONS: Continue PEG tube feedings. Clean site with soap and water daily. We will sign of f. If I can be of further assistance, please do not hesitate to contact me.
[2017-09-17 14:26] VITALS: BMI 20.2
--- NOTE | 2017-09-17 15:31 | PDOC.PN ---
- Subjective Encounter Start Date: 09/17/17 Encounter Start Time: 10:30 -: non-verbal Patient seen and examined. Appears comfortable. No overnight events - Objective Resuscitation Status: Resuscitation Status FULL:Full Resuscitation MAR Reviewed: Yes Vital Signs & Weight: Vital Signs (12 hours) Temp Pulse Resp BP BP Pulse Ox 09/17/17 12:00 97.8 F 67 16 122/76 100 09/17/17 08:00 97.7 F 63 20 98/66 100 09/17/17 05:50 97.5 F L 63 16 94/66 100 09/17/17 04:33 97.9 F 61 16 90/53 L 99 Weight Admit Weight 148 lb 8 oz Weight 148 lb 12.8 oz I&O: 09/16/17 09/17/17 09/18/17 06:59 06:59 06:59 Intake Total 1072 1825 95 Output Total 2100 1000 Balance -1028 825 95 Result Diagrams: 09/15/17 05:18 09/15/17 05:18 Additional Labs: Accuchecks 09/17/17 09/17/17 09/16/17 12:50 06:41 17:01 POC Glucose 84 75 105 Phys Exam - Physical Examination Constitutional: NAD Respiratory: no wheezing, no rhonchi Cardiovascular: RRR, no rub Gastrointestinal: soft, non-tender, positive bowel sounds Musculoskeletal: no edema Dx/Plan - Plan DVT proph w/SCDs IMPRESSION: 1. Toxic metabolic encephalopathy, suspected secondary to catheter-associated urinary tract infection and dehydration. mentation same - baseline mentation unclear 2. Chronic kidney disease, stage 2 / Hypokalemia / Hypoglycemia 3. Elevated troponins in the indeterminate range, probably secondary to dehydration. s/p Echo 4. Elevated CK, probably secondary to recurrent falls. improving 5. 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 All meds on hold 6. Chronic anemia, microcytic. 7. Hyperlipidemia. 8. History of chronic constipation / Probably Moderate PEM / Swallow dys s/p PEG tube PLAN: * Cont PEG tube feed * Cont current meds as below * Palliative care team following * Sitter * Family requesting a different nursing facility * AM labs * Change to bolus feeds * IVF dced. * DC in AM if able to tolerate bolus feeds Review of Systems - Review of Systems Other: Cannot obtain due to current cognition - Medications/Allergies Allergies/Adverse Reactions: Allergies Allergy/AdvReac Type Severity Reaction Status Date / Time No Known Allergies Allergy Unverified 03/25/16 17:43 Medications: Current Medications Acetaminophen (Tylenol) 650 mg PO Q4H PRN PRN Reason: Headache/Fever or Pain Acetaminophen (Tylenol) 650 mg [place] Q4H PRN PRN Reason: Headache/Fever or Pain Albuterol/Ipratropium (Duoneb) 3 ml NEB QID PRN PRN Reason: SOB wheezing Aspirin (Aspirin) 325 mg PO DAILY [facility] Last Admin: 09/17/17 10:16 Dose: 325 mg Bisacodyl (Dulcolax) 10 mg [place] Q24H PRN PRN Reason: Constipation Docusate Sodium (Colace) 100 mg PO BID [facility] Last Admin: 09/17/17 10:16 Dose: 100 mg Enoxaparin Sodium (Lovenox) 30 mg SC 0900 [facility] Last Admin: 09/17/17 10:16 Dose: 30 mg Famotidine (Pepcid) 20 mg PER TUBE BID [facility] Last Admin: 09/17/17 10:16 Dose: 20 mg Ceftriaxone Sodium 1 gm/ (Sodium Chloride) 10 mls @ 120 mls/hr SLOW IVP DAILY [facility] Last Admin: 09/17/17 11:10 Dose: 10 mls Lorazepam (Ativan) 0.5 mg SLOW IVP Q6H PRN PRN Reason: Agitation Last Admin: 09/16/17 22:02 Dose: 0.5 mg Nitroglycerin (Nitrostat) 0.4 mg PO Q5MIN PRN PRN Reason: Chest Pain Saccharomyces Boulardii (Florastor) 250 mg PO DAILY [facility] Last Admin: 09/17/17 10:16 Dose: 250 mg Senna (Senokot) 2 tab PO HSPRN PRN PRN Reason: Constipation Sodium Chloride (Flush - Normal Saline) 10 ml IVF Q12HR [facility] Last Admin: 09/17/17 10:17 Dose: 10 ml Sodium Chloride (Flush - Normal Saline) 10 ml IVF PRN PRN PRN Reason: Saline Flush Last Admin: 09/15/17 20:53 Dose: 10 ml
[2017-09-18 04:44] LABS: #Eosinphils 0.3 thou/uL (0.0-0.7); #Lymphocytes 1.6 thou/uL (1.20-3.40); #Monocytes 0.8 thou/uL (0.11-0.59); #Neutrophils 8.1 thou/uL (1.40-6.50); %Basophils 0.3 % (0.0-1.0); %Eosinophils 2.6 % (0.0-10.0); %Lymphocytes 14.9 % (21.0-51.0); %Monocytes 7.2 % (0.0-10.0); %Neutrophils 75.1 % (42.0-75.0); Hemoglobin 12.1 g/dL (14.0-18.0); Mean Corpuscular HGB CONC 34.2 g/dL (32.0-36.0); Mean Corpuscular Hemoglobin 31.7 pg (27.0-31.0); Mean Corpuscular Volume 92.6 fl (80.0-94.0); Mean Platelet Volume 7.7 fL (7.4-10.4); Platelet Count 150 thou/uL (130-400); RBC Distribution Width 10.9 % (11.5-14.5); Red Blood Cell (RBC) Count 3.82 mill/uL (4.70-6.10); White Blood Cell (WBC) Count 10.8 thou/uL (4.8-10.8)
[2017-09-18 05:01] LABS: Albumin 3.8 g/dL (3.5-5.0); Anion Gap 10 mmol/L (10-20); BUN (Urea Nitrogen) 11 mg/dL (8.4-25.7); BUN/Creatinine Ratio 10.28; Calc. Creatinine Clearance 70 mL/min (70-130); Calcium 8.9 mg/dL (7.8-10.44); Carbon Dioxide 27 mmol/L (22-29); Chloride 108 mmol/L (98-107); Estimated GFR-MDRD 85; Glucose 86 mg/dL (70-105); Magnesium 1.5 mg/dL (1.6-2.6); Potassium 3.6 mmol/L (3.5-5.1); Sodium 141 mmol/L (136-145)
[2017-09-18 05:08] LABS: Phosphorus 1.5 mg/dL (2.3-4.7)
[2017-09-18] MEDS ORDERED: Potassium Phosphate 15 MMOL in Sodium Chloride 0.9% 250 ML 250 ML IVPB SCH (09:15)
[2017-09-18] MEDS ORDERED: Magnesium 2 GM/NS 0.9% 100 ML 2 GM in Premix Bag 1 BAG IVPB SCH (09:45)
[2017-09-18] MEDS: Aspirin 325 MG TAB PO SCH (10:12)
[2017-09-18] MEDS: cefTRIAXone\\ROCEPHIN 1 GM in Sodium Chloride 0.9% 10 ML SLOW IVP SCH (10:12)
[2017-09-18] MEDS: Docusate 100 MG CAP PO SCH ×2 (10:13→20:56)
[2017-09-18] MEDS: Enoxaparin Sodium 30 MG/0.3 ML SYRINGE SC SCH (10:14)
[2017-09-18] MEDS: Saccharomyces boulardii 250 MG CAP PO SCH (10:14)
[2017-09-18] MEDS: Famotidine 20 MG TAB PER TUBE SCH ×2 (10:14→20:55)
--- NOTE | 2017-09-18 18:34 | PDOC.PN ---
- Subjective Encounter Start Date: 09/18/17 Encounter Start Time: 15:00 -: non-verbal Patient seen and examined. No new complaints. No overnight events - Objective Resuscitation Status: Resuscitation Status FULL:Full Resuscitation MAR Reviewed: Yes Vital Signs & Weight: Vital Signs (12 hours) Temp Pulse Resp BP Pulse Ox 09/18/17 16:00 98.6 F 91 16 97/64 100 09/18/17 12:00 97.5 F L 92 16 103/57 L 100 09/18/17 08:00 99.2 F 91 16 103/69 100 Weight Admit Weight 148 lb 8 oz Weight 148 lb 12.8 oz I&O: 09/17/17 09/18/17 09/19/17 06:59 06:59 06:59 Intake Total 1825 3033 2839 Output Total 1000 1200 800 Balance 825 1833 2039 Result Diagrams: 09/18/17 04:17 09/18/17 04:17 Additional Labs: Accuchecks 09/18/17 09/18/17 09/18/17 17:06 11:22 06:02 POC Glucose 115 H 148 H 86 09/18/17 09/17/17 09/17/17 01:00 20:05 00:56 POC Glucose 73 92 87 Laboratory Tests 09/18/17 04:17 Phosphorus 1.5 L Magnesium 1.5 L Phys Exam - Physical Examination Constitutional: NAD Respiratory: no wheezing, no rhonchi Cardiovascular: RRR, no rub Gastrointestinal: soft, non-tender, positive bowel sounds Musculoskeletal: no edema Neurological: moves all 4 limbs Dx/Plan - Plan continue antibiotics, DVT proph w/lovenox, DVT proph w/SCDs IMPRESSION: 1. Toxic metabolic encephalopathy, suspected secondary to catheter-associated urinary tract infection and dehydration. 2. Chronic kidney disease, stage 2 / Hypokalemia / Hypoglycemia 3. Elevated troponins in the indeterminate range, probably secondary to dehydration. s/p Echo 4. Elevated CK, probably secondary to recurrent falls. 5. 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 6. Chronic anemia, microcytic. 7. Hyperlipidemia. 8. History of chronic constipation / Probably Moderate PEM / Swallow dys s/p PEG tube / Hypomagnesemia/ Hypophosphatemia PLAN: * Resume Lexapro * Cont PEG tube feed * Cont current meds as below * Palliative care team following * Sitter PRN * Family requesting dc home * Will arrange for HHC * Family will need education on tube feedings * DC in AM * Replace electrolytes Review of Systems - Review of Systems Other: Cannot be obtained due to current cognition - Medications/Allergies Allergies/Adverse Reactions: Allergies Allergy/AdvReac Type Severity Reaction Status Date / Time No Known Allergies Allergy Unverified 03/25/16 17:43 Medications: Current Medications Acetaminophen (Tylenol) 650 mg PO Q4H PRN PRN Reason: Headache/Fever or Pain Acetaminophen (Tylenol) 650 mg [place] Q4H PRN PRN Reason: Headache/Fever or Pain Albuterol/Ipratropium (Duoneb) 3 ml NEB QID PRN PRN Reason: SOB wheezing Aspirin (Aspirin) 325 mg PO DAILY [facility] Last Admin: 09/18/17 10:12 Dose: 325 mg Bisacodyl (Dulcolax) 10 mg [place] Q24H PRN PRN Reason: Constipation Docusate Sodium (Colace) 100 mg PO BID [facility] Last Admin: 09/18/17 10:13 Dose: 100 mg Enoxaparin Sodium (Lovenox) 30 mg SC 0900 [facility] Last Admin: 09/18/17 10:14 Dose: 30 mg Escitalopram Oxalate (Lexapro) 10 mg PER TUBE HS [facility] Famotidine (Pepcid) 20 mg PER TUBE BID [facility] Last Admin: 09/18/17 10:14 Dose: 20 mg Ceftriaxone Sodium 1 gm/ (Sodium Chloride) 10 mls @ 120 mls/hr SLOW IVP DAILY [facility] Last Admin: 09/18/17 10:12 Dose: 10 mls Lorazepam (Ativan) 0.5 mg SLOW IVP Q6H PRN PRN Reason: Agitation Last Admin: 09/16/17 22:02 Dose: 0.5 mg Miscellaneous Medication (Phos-Nak) 1 pkt PER TUBE TID [facility] Last Admin: 09/18/17 14:52 Dose: 1 pkt Nitroglycerin (Nitrostat) 0.4 mg PO Q5MIN PRN PRN Reason: Chest Pain Saccharomyces Boulardii (Florastor) 250 mg PO DAILY [facility] Last Admin: 09/18/17 10:14 Dose: 250 mg Senna (Senokot) 2 tab PO HSPRN PRN PRN Reason: Constipation Sodium Chloride (Flush - Normal Saline) 10 ml IVF Q12HR [facility] Last Admin: 09/18/17 10:14 Dose: 10 ml Sodium Chloride (Flush - Normal Saline) 10 ml IVF PRN PRN PRN Reason: Saline Flush Last Admin: 09/15/17 20:53 Dose: 10 ml
[2017-09-18] MEDS ORDERED: Escitalopram Oxalate 10 mg Tablet PO SCH (21:00)
[2017-09-18] MEDS ORDERED: Escitalopram Oxalate 10 mg Tablet PER TUBE SCH (21:00)
[2017-09-19] MEDS: Enoxaparin Sodium 30 MG/0.3 ML SYRINGE SC SCH (08:58)
[2017-09-19] MEDS: Aspirin 325 MG TAB PO SCH (08:59)
[2017-09-19] MEDS: Famotidine 20 MG TAB PER TUBE SCH (08:59)
[2017-09-19] MEDS: Saccharomyces boulardii 250 MG CAP PO SCH (09:00)
[2017-09-19] MEDS: cefTRIAXone\\ROCEPHIN 1 GM in Sodium Chloride 0.9% 10 ML SLOW IVP SCH (09:00)
[2017-09-19] MEDS: Docusate 100 MG CAP PO SCH (09:00)
[2017-09-19] MEDS ORDERED: Artificial Tears 18 DROP/0.9 ML EA EYE SCH (15:00)
[2017-09-19 16:52] VITALS: BP 99/64; TEMP 97.8
--- NOTE | 2017-09-20 09:56 | DIS ---
DATE OF DISCHARGE: 09/20/2017 DISCHARGE DISPOSITION: Home per family's request. The patient came from [facility]. ALLERGIES: No known drug allergies. DIET: The patient is at risk for aspiration. He will continue PEG tube feeding per dietitian's amanuel mmendation. DISCHARGE MEDICATIONS: Aspirin 81 mg daily, Lexapro 10 mg at bedtime, omeprazole 20 mg daily, Phos-N aK 1 packet 3 times a day #10, simvastatin 20 mg at bedtime, DuoNebs as needed, Senokot as needed, an d multivitamin 1 tablet daily. INPATIENT CONSULTANTS: Gastroenterology, Dr. Dillard and Neurology, Dr. Uribe. BRIEF HOSPITAL COURSE: The patient is a 62-year-old -[place] male with schizoaffective disor augustine, chronic indwelling Neal catheter and Parkinson's disease who presented to the emergency room wi th altered mentation from [facility]. Please refer to the history and physical dated 09/13/2017 for further details. The patient was admitted to the hospital with diagnosis of toxic metabolic encephalopathy probably se condary to catheter associated urinary tract infection and dehydration. He was started on IV fluids. Due to swallow dysfunction, a PEG tube was placed by Dr. Dillard per family's request. The patient has tolerated bolus feeds and is stable for discharge. He was found to have urinary tract infection and has completed IV antibiotics during the hospital stay. His blood cultures were negative. His ur ine cultures showed less than 10,000 normal skin john. Plan of care was discussed with the patient' s sister, who is the DPOA, who agrees with discharging him home with family support. They persistent ly declined sending him to correction facility. They are comfortable taking care of the Neal c atheter and PEG tube feedings. FINAL DIAGNOSES: 1. Toxic metabolic encephalopathy secondary to catheter associated urinary tract infection and dehyd ration. 2. Chronic kidney disease stage 2. 3. Electrolyte imbalance. The patient had hypokalemia, hypomagnesemia and hypophosphatemia that hav e been replaced. 4. Hypoglycemia, probably secondary to poor oral intake. 5. Elevated troponins in the indeterminate range, probably secondary to dehydration. An echocardiog kasandra was done that showed left ventricular ejection fraction of 55%-60%. 6. Chronic anemia. 7. Chronic hypertonia of unclear etiology. The patient was evaluated by Neurology, Dr. Uribe with out any new recommendation. An outpatient Neurology followup is recommended. 8. Chronic anemia. 9. Hyperlipidemia. 10. History of chronic constipation. Primary care physician advised to follow. 11. Moderate protein calorie malnutrition. 12. Swallow dysfunction, status post percutaneous endoscopic gastrostomy tube placement on this admi ssion. 13. Please note the patient is at high risk of readmission. 14. Follow up with Dr. Marie in [place] in 1 week. 15. Basic metabolic panel, magnesium and phosphorus after 1 week is recommended. Primary care physi anabel advised to follow. SIGNIFICANT LABORATORY DATA: Phosphorus 1.5, magnesium 1.5, potassium 3.3, hemoglobin and hematocrit 12.1/35.4. IMAGING DATA: Chest x-ray on admission was negative for infiltrate. CT scan of the brain on admissi on was negative. Total time coordinating the discharge of this patient was 33 minutes. The patient will be discharged home by ambulance due to severe deconditioning and lack of ambulation.
== END 2017-09-19 17:00 | disposition home health service (06) | DRG 698 ==
LOC: ERS 19:54 → 2NO 09-13 00:03 → T4-A 09-17 06:14
PROVIDERS: ADMIT Internal Medicine; ATTEND Internal Medicine
PROC: 0DH63UZ Insertion of Feeding Device into Stomach, Percutaneous Approach (ICD-10-PCS; principal; 2017-09-15)
PROC: 3E0G76Z Introduction of Nutritional Substance into Upper GI, Via Natural or Artificial Opening (ICD-10-PCS; 2017-09-15)
DX: T83.511A Infection and inflammatory reaction due to indwelling urethral catheter, initial encounter (principal); G92 Toxic encephalopathy; I24.8 Other forms of acute ischemic heart disease; E44.0 Moderate protein-calorie malnutrition; E83.42 Hypomagnesemia; E83.39 Other disorders of phosphorus metabolism; G20 Parkinson's disease; F25.9 Schizoaffective disorder, unspecified; I48.2 Chronic atrial fibrillation; M62.82 Rhabdomyolysis; R13.12 Dysphagia, oropharyngeal phase; E86.0 Dehydration; Z96.0 Presence of urogenital implants; Z91.81 History of falling; E78.5 Hyperlipidemia, unspecified; R33.9 Retention of urine, unspecified; N18.2 Chronic kidney disease, stage 2 (mild); D64.9 Anemia, unspecified; K56.41 Fecal impaction; E87.6 Hypokalemia; E16.2 Hypoglycemia, unspecified; Z68.20 Body mass index [BMI] 20.0-20.9, adult; Z86.73 Personal history of transient ischemic attack (TIA), and cerebral infarction without residual deficits; R62.7 Adult failure to thrive
CPT/HCPCS: 36415; 36416; 70450; 71045; 80048; 80053; 80069; 81003; 81015; 82550; 82553; 82607; 82746; 83605; 83735; 84100; 84484; 85025; 87040; 87077; 87086; 93005; 93010; 93306; 94760; 96365; 96366; 96375; A4216; G8978-GP-CM; G8979-GP-CK; G8987-GO-CK; G8988-GO-CI; G8996-GN-CN; G8997-GN-CM; J0515; J0696; J1650; J2060; J2250; J2704; J3475; J7050; S0028

== ENCOUNTER 2021-05-10 11:37 | Inpatient (IN) | payer OTHER ==
[2021-05-10] MEDS ORDERED: diphenhydrAMINE 50 MG/ML VIAL ONE (12:22)
[2021-05-10] MEDS ORDERED: Haloperidol Lactate 5 MG/ML VIAL ONE (12:22)
[2021-05-10 12:50] LABS: #Monocytes 0.4 thou/uL (0.11-0.59); #Neutrophils 4.9 thou/uL (1.40-6.50); %Basophils 0.4 % (0.0-1.0); %Eosinophils 0.5 % (0.0-10.0); %Lymphocytes 16.4 % (21.0-51.0); %Monocytes 6.3 % (0.0-10.0); %Neutrophils 76.3 % (42.0-75.0); Hemoglobin 13.7 g/dL (14.0-18.0); Mean Corpuscular HGB CONC 33.1 g/dL (32.0-36.0); Mean Corpuscular Hemoglobin 30.8 pg (27.0-31.0); Mean Corpuscular Volume 92.9 fL (78.0-98.0); Mean Platelet Volume 7.6 fL (7.4-10.4); Platelet Count 196 thou/uL (130-400); RBC Distribution Width 12.4 % (11.5-14.5); Red Blood Cell (RBC) Count 4.45 mill/uL (4.70-6.10); White Blood Cell (WBC) Count 6.4 thou/uL (4.8-10.8)
[2021-05-10] MEDS ORDERED: cefTRIAXone\\ROCEPHIN 1 GM VIAL ONE (13:02)
[2021-05-10 13:10] LABS: ALT (SGPT) 10 U/L (8-55); AST (SGOT) 21 U/L (5-34); Albumin 4.7 g/dL (3.4-4.8); Alkaline Phosphatase 131 U/L (40-110); Anion Gap 16 mmol/L (10-20); BUN (Urea Nitrogen) 24 mg/dL (8.4-25.7); Bilirubin, Total 1.2 mg/dL (0.2-1.2); Calc. Creatinine Clearance 0 mL/min (70-130); Calcium 10.3 mg/dL (7.8-10.44); Carbon Dioxide 26 mmol/L (23-31); Chloride 104 mmol/L (98-107); Glucose 101 mg/dL (80-115); Potassium 5.2 mmol/L (3.5-5.1); Protein, Total 8.7 g/dL (5.8-8.1); Sodium 141 mmol/L (136-145)
[2021-05-10 13:15] LABS: Acetaminophen Less than 6.0 mcg/mL (10.0-30.0); Alcohol Less than 10 mg/dL (Less than 10); Salicylate Less than 8.0 mg/dL (15.0-30.0)
[2021-05-10] MEDS ORDERED: Lorazepam 2 MG/ML VIAL ONE (13:38)
[2021-05-10 14:51] LABS: Bacteria/HPF None Seen HPF (None Seen); Bilirubin Negative (Negative); Blood, Urine Negative (Negative); Clarity Clear (Clear); Glucose, Urine (Dipstick) Normal (Negative); Ketone, Urine 20 mg/dL (Negative); Leukocyte 75 Leu/uL (Negative); Nitrite Negative (Negative); Protein, Urine (Dipstick) 30 mg/dL (Neg-Trace); RBC/HPF 0-3 HPF (0-3); Specific Gravity, Urine 1.022 (1.002-1.036); Squamous Epithelial 0-3 HPF (0-3); Urobilinogen Normal mg/dL (Less than 2); pH, Urine 5.5 (5.0-9.0)
[2021-05-10 14:58] LABS: Amphetamine Not Detected (NotDetected); Barbiturates Screen Not Detected (NotDetected); Benzodiazepine Screen Not Detected (NotDetected); Cocaine Metabolite Screen Not Detected (NotDetected); Methadone Not Detected (NotDetected); Methamphetamine Not Detected (NotDetected); Opiate Screen Not Detected (NotDetected); Oxycodone Screen Not Detected (NotDetected); Phencyclidine (PCP) Not Detected (NotDetected); THC/Cannabinoid Screen Not Detected (NotDetected); Tricyclic Screen Not Detected (NotDetected)
[2021-05-10 15:41] LABS: Lactic Acid 2.1 mmol/L (0.5-2.2)
[2021-05-10] MEDS ORDERED: Acetaminophen 325 MG TAB PO PRN (19:34)
[2021-05-10] MEDS ORDERED: OLANZapine 10 MG VIAL IM SCH (20:45)
[2021-05-10] MEDS ORDERED: Haloperidol Lactate 5 MG/ML VIAL IM SCH (23:15)
[2021-05-11] MEDS: cefTRIAXone\\ROCEPHIN 2 GM in Sodium Chloride 0.9% 100 ML IVPB SCH ×2 (00:50→20:32)
[2021-05-11 08:10] LABS: #Eosinphils 0.3 thou/uL (0.0-0.7); #Lymphocytes 1.3 thou/uL (1.20-3.40); #Monocytes 0.7 thou/uL (0.11-0.59); #Neutrophils 3.7 thou/uL (1.40-6.50); %Basophils 0.3 % (0.0-1.0); %Eosinophils 5.8 % (0.0-10.0); %Lymphocytes 22.1 % (21.0-51.0); %Monocytes 11.1 % (0.0-10.0); %Neutrophils 60.7 % (42.0-75.0); Mean Corpuscular HGB CONC 33.2 g/dL (32.0-36.0); Mean Corpuscular Hemoglobin 30.8 pg (27.0-31.0); Mean Corpuscular Volume 92.7 fL (78.0-98.0); Mean Platelet Volume 7.6 fL (7.4-10.4); Platelet Count 167 thou/uL (130-400); RBC Distribution Width 12.3 % (11.5-14.5)
[2021-05-11 08:26] LABS: Anion Gap 14 mmol/L (10-20); BUN (Urea Nitrogen) 22 mg/dL (8.4-25.7); Calc. Creatinine Clearance 75 mL/min (70-130); Calcium 9.7 mg/dL (7.8-10.44); Carbon Dioxide 27 mmol/L (23-31); Chloride 108 mmol/L (98-107); Glucose 77 mg/dL (80-115); Potassium 4.9 mmol/L (3.5-5.1); Sodium 144 mmol/L (136-145)
[2021-05-11 08:46] LABS: Thyroid Stimulating Hormone 1.8908 uIU/mL (0.35-4.94)
[2021-05-11 08:52] LABS: CKMB 4.3 ng/mL (0-6.6)
[2021-05-11] MEDS: Carvedilol 3.125 MG TAB PO SCH ×3 (09:03→17:18)
[2021-05-11] MEDS: Aspirin Chewable 81 MG TAB PO SCH (09:03)
[2021-05-11] MEDS: Divalproex Sodium 125 mg Sprinkle Capsule PO SCH ×2 (09:03→20:31)
[2021-05-11] MEDS: Enoxaparin Sodium 40 MG/0.4 ML SYRINGE SC SCH (09:03)
[2021-05-11 17:44] LABS: SARS-CoV-2 PCR by NAA Not Detected (NotDetected)
[2021-05-11] MEDS ORDERED: Sterile Water 10 ML VIAL FS PRN (18:00)
[2021-05-11] MEDS: Sodium Chloride 0.9% 1,000 ML IV SCH (18:45)
[2021-05-11 18:54] VITALS: BMI 26.6
[2021-05-11] MEDS: Atorvastatin Calcium 10 MG TAB PO SCH (20:31)
[2021-05-11] MEDS: Ziprasidone 20 MG VIAL IM SCH (20:31)
[2021-05-11] MEDS: Escitalopram Oxalate 10 mg Tablet PO SCH (20:31)
[2021-05-11] MEDS ORDERED: OLANZapine 2.5 MG TAB PO SCH (21:00)
[2021-05-12] MEDS: Aspirin Chewable 81 MG TAB PO SCH ×2 (08:58→17:58)
[2021-05-12] MEDS: Divalproex Sodium 125 mg Sprinkle Capsule PO SCH ×3 (08:58→23:32)
[2021-05-12] MEDS: Enoxaparin Sodium 40 MG/0.4 ML SYRINGE SC SCH (08:58)
[2021-05-12] MEDS: Sodium Chloride 0.9% 1,000 ML IV SCH ×2 (08:58→23:24)
[2021-05-12] MEDS: Carvedilol 3.125 MG TAB PO SCH ×3 (08:58→17:59)
[2021-05-12] MEDS: Atorvastatin Calcium 10 MG TAB PO SCH (23:24)
[2021-05-12] MEDS: Ziprasidone 20 MG VIAL IM SCH (23:24)
[2021-05-12] MEDS: Escitalopram Oxalate 10 mg Tablet PO SCH (23:24)
[2021-05-12] MEDS: cefTRIAXone\\ROCEPHIN 2 GM in Sodium Chloride 0.9% 100 ML IVPB SCH (23:27)
[2021-05-13] MEDS: Enoxaparin Sodium 40 MG/0.4 ML SYRINGE SC SCH (09:50)
[2021-05-13] MEDS: Carvedilol 3.125 MG TAB PO SCH ×2 (13:18→17:30)
[2021-05-13] MEDS: Divalproex Sodium 125 mg Sprinkle Capsule PO SCH ×3 (13:18→20:53)
[2021-05-13] MEDS: Aspirin Chewable 81 MG TAB PO SCH (13:18)
[2021-05-13] MEDS: Sodium Chloride 0.9% 1,000 ML IV SCH (13:19)
[2021-05-13] MEDS ORDERED: hydrALAZINE 20 MG/ML VIAL SLOW IVP PRN (16:53)
[2021-05-13] MEDS: Atorvastatin Calcium 10 MG TAB PO SCH ×2 (20:43→20:52)
[2021-05-13] MEDS: cefTRIAXone\\ROCEPHIN 2 GM in Sodium Chloride 0.9% 100 ML IVPB SCH (20:43)
[2021-05-13] MEDS: Escitalopram Oxalate 10 mg Tablet PO SCH ×2 (20:43→20:45)
[2021-05-13] MEDS: Ziprasidone 20 MG VIAL IM SCH (20:54)
[2021-05-14] MEDS: Sodium Chloride 0.9% 1,000 ML IV SCH ×3 (03:04→20:35)
[2021-05-14 07:26] LABS: #Eosinphils 0.1 thou/uL (0.0-0.7); #Monocytes 0.6 thou/uL (0.11-0.59); #Neutrophils 5.3 thou/uL (1.40-6.50); %Basophils 0.3 % (0.0-1.0); %Eosinophils 1.9 % (0.0-10.0); %Lymphocytes 13.8 % (21.0-51.0); Hemoglobin 11.8 g/dL (14.0-18.0); Mean Corpuscular HGB CONC 33.6 g/dL (32.0-36.0); Mean Corpuscular Hemoglobin 30.7 pg (27.0-31.0); Mean Corpuscular Volume 91.4 fL (78.0-98.0); Mean Platelet Volume 7.6 fL (7.4-10.4); Platelet Count 170 thou/uL (130-400); RBC Distribution Width 11.8 % (11.5-14.5); Red Blood Cell (RBC) Count 3.83 mill/uL (4.70-6.10); White Blood Cell (WBC) Count 7.1 thou/uL (4.8-10.8)
[2021-05-14 07:41] LABS: Anion Gap 17 mmol/L (10-20); BUN (Urea Nitrogen) 16 mg/dL (8.4-25.7); Calc. Creatinine Clearance 75 mL/min (70-130); Calcium 9.1 mg/dL (7.8-10.44); Carbon Dioxide 18 mmol/L (23-31); Chloride 107 mmol/L (98-107); Glucose 61 mg/dL (80-115); Magnesium 1.5 mg/dL (1.6-2.6); Potassium 4.1 mmol/L (3.5-5.1); Sodium 138 mmol/L (136-145)
[2021-05-14] MEDS ORDERED: Magnesium 2 GM/50 ML 2 GM in Premix Bag 1 BAG IVPB SCH (08:00)
[2021-05-14] MEDS: Enoxaparin Sodium 40 MG/0.4 ML SYRINGE SC SCH (08:45)
[2021-05-14] MEDS: Carvedilol 3.125 MG TAB PO SCH ×2 (08:46→18:56)
[2021-05-14] MEDS: Divalproex Sodium 125 mg Sprinkle Capsule PO SCH ×2 (08:46→20:34)
[2021-05-14] MEDS: Aspirin Chewable 81 MG TAB PO SCH (08:46)
[2021-05-14] MEDS: Ziprasidone 20 MG VIAL IM SCH (20:17)
[2021-05-14] MEDS: cefTRIAXone\\ROCEPHIN 2 GM in Sodium Chloride 0.9% 100 ML IVPB SCH (20:17)
[2021-05-14] MEDS: Atorvastatin Calcium 10 MG TAB PO SCH (20:34)
[2021-05-14] MEDS: Escitalopram Oxalate 10 mg Tablet PO SCH (20:34)
[2021-05-15] MEDS: Carvedilol 3.125 MG TAB PO SCH ×2 (08:00→17:13)
[2021-05-15] MEDS: Aspirin Chewable 81 MG TAB PO SCH (09:00)
[2021-05-15] MEDS: Divalproex Sodium 125 mg Sprinkle Capsule PO SCH ×2 (09:00→21:34)
[2021-05-15] MEDS: Enoxaparin Sodium 40 MG/0.4 ML SYRINGE SC SCH (09:00)
[2021-05-15] MEDS ORDERED: guaiFENesin ER 600 MG TAB PO SCH (21:00)
[2021-05-15] MEDS ORDERED: GUAIFENESIN SF SOLN 200 MG/10 ML UDCUP PO PRN (21:18)
[2021-05-15] MEDS: Atorvastatin Calcium 10 MG TAB PO SCH (21:34)
[2021-05-15] MEDS: OLANZapine 5 MG TAB PER TUBE SCH (21:34)
[2021-05-15] MEDS: Escitalopram Oxalate 10 mg Tablet PO SCH (21:34)
[2021-05-15] MEDS: Mirtazapine 15 MG TAB PER TUBE SCH (21:34)
[2021-05-16 06:29] LABS: #Basophils 0.1 thou/uL (0.0-0.2); #Eosinphils 0.3 thou/uL (0.0-0.7); #Lymphocytes 1.6 thou/uL (1.20-3.40); #Monocytes 0.9 thou/uL (0.11-0.59); #Neutrophils 5.7 thou/uL (1.40-6.50); %Basophils 0.6 % (0.0-1.0); %Eosinophils 3.2 % (0.0-10.0); %Lymphocytes 18.9 % (21.0-51.0); %Monocytes 10.3 % (0.0-10.0); %Neutrophils 66.9 % (42.0-75.0); Hemoglobin 13.3 g/dL (14.0-18.0); Mean Corpuscular HGB CONC 33.9 g/dL (32.0-36.0); Mean Corpuscular Hemoglobin 30.5 pg (27.0-31.0); Mean Corpuscular Volume 89.8 fL (78.0-98.0); Mean Platelet Volume 7.2 fL (7.4-10.4); Platelet Count 186 thou/uL (130-400); Red Blood Cell (RBC) Count 4.37 mill/uL (4.70-6.10); White Blood Cell (WBC) Count 8.5 thou/uL (4.8-10.8)
[2021-05-16 06:42] LABS: Anion Gap 10 mmol/L (10-20); BUN (Urea Nitrogen) 15 mg/dL (8.4-25.7); Calc. Creatinine Clearance 74 mL/min (70-130); Calcium 9.7 mg/dL (7.8-10.44); Carbon Dioxide 26 mmol/L (23-31); Chloride 107 mmol/L (98-107); Glucose 153 mg/dL (80-115); Magnesium 1.7 mg/dL (1.6-2.6); Potassium 3.8 mmol/L (3.5-5.1); Sodium 139 mmol/L (136-145)
[2021-05-16] MEDS: Divalproex Sodium 125 mg Sprinkle Capsule PO SCH ×2 (08:01→20:14)
[2021-05-16] MEDS: Carvedilol 3.125 MG TAB PO SCH ×2 (08:01→18:40)
[2021-05-16] MEDS: Enoxaparin Sodium 40 MG/0.4 ML SYRINGE SC SCH (08:01)
[2021-05-16] MEDS: Aspirin Chewable 81 MG TAB PO SCH (08:01)
[2021-05-16] MEDS: Atorvastatin Calcium 10 MG TAB PO SCH (20:14)
[2021-05-16] MEDS: Mirtazapine 15 MG TAB PER TUBE SCH (20:14)
[2021-05-16] MEDS: OLANZapine 5 MG TAB PER TUBE SCH (20:14)
[2021-05-16] MEDS: Escitalopram Oxalate 10 mg Tablet PO SCH (20:14)
[2021-05-17] MEDS: Carvedilol 3.125 MG TAB PO SCH ×2 (08:04→15:45)
[2021-05-17] MEDS: Enoxaparin Sodium 40 MG/0.4 ML SYRINGE SC SCH (08:04)
[2021-05-17] MEDS: Divalproex Sodium 125 mg Sprinkle Capsule PO SCH ×2 (08:04→21:08)
[2021-05-17] MEDS: Aspirin Chewable 81 MG TAB PO SCH (08:04)
[2021-05-17] MEDS: D5 0.9% NS w/ 20 mEq KCl 1,000 ML IV SCH (16:44)
[2021-05-17] MEDS: Atorvastatin Calcium 10 MG TAB PO SCH (21:08)
[2021-05-17] MEDS: Mirtazapine 15 MG TAB PER TUBE SCH (21:08)
[2021-05-17] MEDS: OLANZapine 5 MG TAB PER TUBE SCH (21:08)
[2021-05-17] MEDS: Escitalopram Oxalate 10 mg Tablet PO SCH (21:08)
[2021-05-18] MEDS: Enoxaparin Sodium 40 MG/0.4 ML SYRINGE SC SCH (07:53)
[2021-05-18] MEDS: D5 0.9% NS w/ 20 mEq KCl 1,000 ML IV SCH (07:53)
[2021-05-18] MEDS: Aspirin Chewable 81 MG TAB PO SCH (07:54)
[2021-05-18] MEDS: Carvedilol 3.125 MG TAB PO SCH ×2 (07:54→15:24)
[2021-05-18] MEDS: Divalproex Sodium 125 mg Sprinkle Capsule PO SCH ×2 (07:54→23:02)
[2021-05-18] MEDS: Amino Acids 4.25 %/Dextrose 5% 1,000 ML IV SCH (15:27)
[2021-05-18] MEDS: Lorazepam 2 MG/ML VIAL SLOW IVP PRN (16:56)
[2021-05-18] MEDS: Atorvastatin Calcium 10 MG TAB PO SCH (23:02)
[2021-05-18] MEDS: OLANZapine 5 MG TAB PER TUBE SCH (23:03)
[2021-05-18] MEDS: Escitalopram Oxalate 10 mg Tablet PO SCH (23:03)
[2021-05-18] MEDS: Mirtazapine 15 MG TAB PER TUBE SCH (23:03)
[2021-05-18 23:24] LABS: SARS-CoV-2 PCR by NAA Not Detected (NotDetected)
[2021-05-19] MEDS: Amino Acids 4.25 %/Dextrose 5% 1,000 ML IV SCH ×2 (02:00→10:16)
[2021-05-19] MEDS ORDERED: Amino Acids 4.25 %/Dextrose 5% 2,000 ML BAG IV SCH (09:00)
[2021-05-19] MEDS: Aspirin Chewable 81 MG TAB PO SCH (09:16)
[2021-05-19] MEDS: Carvedilol 3.125 MG TAB PO SCH ×2 (09:16→16:46)
[2021-05-19] MEDS: Divalproex Sodium 125 mg Sprinkle Capsule PO SCH ×3 (09:16→23:00)
[2021-05-19] MEDS: Enoxaparin Sodium 40 MG/0.4 ML SYRINGE SC SCH (10:17)
[2021-05-19] MEDS ORDERED: Dextrose 5% in Water 1,000 ML IV PRN (11:09)
[2021-05-19] MEDS ORDERED: Dextrose 50% Abboject 50 ML SYRINGE SLOW IVP PRN (11:09)
[2021-05-19] MEDS ORDERED: HumaLOG 300 UNITS/3 ML VIAL SC PRN (11:09)
[2021-05-19] MEDS: Escitalopram Oxalate 10 mg Tablet PO SCH ×2 (22:46→23:02)
[2021-05-19] MEDS: OLANZapine 5 MG TAB PER TUBE SCH ×2 (22:46→23:02)
[2021-05-19] MEDS: Atorvastatin Calcium 10 MG TAB PO SCH ×2 (22:47→23:02)
[2021-05-19] MEDS: Mirtazapine 15 MG TAB PER TUBE SCH ×2 (22:48→23:02)
[2021-05-20] MEDS: Amino Acids 4.25 %/Dextrose 5% 1,000 ML IV SCH ×3 (01:34→16:15)
[2021-05-20] MEDS: Divalproex Sodium 125 mg Sprinkle Capsule PO SCH ×2 (07:56→21:29)
[2021-05-20] MEDS: Aspirin Chewable 81 MG TAB PO SCH (07:56)
[2021-05-20] MEDS: Carvedilol 3.125 MG TAB PO SCH ×2 (07:56→16:15)
[2021-05-20] MEDS: Lorazepam 2 MG/ML VIAL SLOW IVP PRN ×2 (08:57→20:58)
[2021-05-20 09:10] LABS: #Eosinphils 0.3 thou/uL (0.0-0.7); #Lymphocytes 1.7 thou/uL (1.20-3.40); #Monocytes 0.4 thou/uL (0.11-0.59); #Neutrophils 3.8 thou/uL (1.40-6.50); %Basophils 0.4 % (0.0-1.0); %Eosinophils 4.1 % (0.0-10.0); %Lymphocytes 27.4 % (21.0-51.0); %Monocytes 7.1 % (0.0-10.0); %Neutrophils 61.1 % (42.0-75.0); Hemoglobin 13.5 g/dL (14.0-18.0); Mean Corpuscular HGB CONC 32.9 g/dL (32.0-36.0); Mean Corpuscular Hemoglobin 30.4 pg (27.0-31.0); Mean Corpuscular Volume 92.2 fL (78.0-98.0); Mean Platelet Volume 8.2 fL (7.4-10.4); Platelet Count 218 thou/uL (130-400); RBC Distribution Width 12.1 % (11.5-14.5); Red Blood Cell (RBC) Count 4.43 mill/uL (4.70-6.10); White Blood Cell (WBC) Count 6.2 thou/uL (4.8-10.8)
[2021-05-20 09:30] LABS: Anion Gap 13 mmol/L (10-20); BUN (Urea Nitrogen) 33 mg/dL (8.4-25.7); Calc. Creatinine Clearance 79 mL/min (70-130); Calcium 9.4 mg/dL (7.8-10.44); Carbon Dioxide 21 mmol/L (23-31); Chloride 107 mmol/L (98-107); Glucose 110 mg/dL (80-115); Sodium 137 mmol/L (136-145)
[2021-05-20] MEDS: Enoxaparin Sodium 40 MG/0.4 ML SYRINGE SC SCH (10:36)
[2021-05-20] MEDS: Dextrose 5 % And 0.9 % NaCl 1,000 ML IV SCH ×2 (10:37→20:57)
[2021-05-20] MEDS: Pantoprazole 40 MG VIAL IVP SCH (10:37)
[2021-05-20] MEDS: Atorvastatin Calcium 10 MG TAB PO SCH (21:29)
[2021-05-20] MEDS: OLANZapine 5 MG TAB PER TUBE SCH (21:29)
[2021-05-20] MEDS: Mirtazapine 15 MG TAB PER TUBE SCH (21:29)
[2021-05-20] MEDS: Escitalopram Oxalate 10 mg Tablet PO SCH (21:29)
[2021-05-21] MEDS: Amino Acids 4.25 %/Dextrose 5% 1,000 ML IV SCH ×3 (03:01→22:18)
[2021-05-21] MEDS: Dextrose 5 % And 0.9 % NaCl 1,000 ML IV SCH ×2 (06:13→17:31)
[2021-05-21] MEDS: Aspirin Chewable 81 MG TAB PO SCH (08:55)
[2021-05-21] MEDS: Enoxaparin Sodium 40 MG/0.4 ML SYRINGE SC SCH (08:55)
[2021-05-21] MEDS: Carvedilol 3.125 MG TAB PO SCH ×2 (08:55→17:27)
[2021-05-21] MEDS: Divalproex Sodium 125 mg Sprinkle Capsule PO SCH ×2 (08:55→22:16)
[2021-05-21] MEDS: Pantoprazole 40 MG VIAL IVP SCH (08:55)
[2021-05-21] MEDS: Mirtazapine 15 MG TAB PER TUBE SCH (22:16)
[2021-05-21] MEDS: Escitalopram Oxalate 10 mg Tablet PO SCH (22:16)
[2021-05-21] MEDS: Atorvastatin Calcium 10 MG TAB PO SCH (22:16)
[2021-05-21] MEDS: OLANZapine 5 MG TAB PER TUBE SCH (22:17)
[2021-05-22] MEDS: Dextrose 5 % And 0.9 % NaCl 1,000 ML IV SCH ×2 (06:01→11:01)
[2021-05-22] MEDS: Lorazepam 2 MG/ML VIAL SLOW IVP PRN ×2 (06:29→15:44)
[2021-05-22 08:24] VITALS: BP 91/61; TEMP 97.8
[2021-05-22] MEDS: Divalproex Sodium 125 mg Sprinkle Capsule PO SCH (08:41)
[2021-05-22] MEDS: Enoxaparin Sodium 40 MG/0.4 ML SYRINGE SC SCH (08:41)
[2021-05-22] MEDS: Aspirin Chewable 81 MG TAB PO SCH (08:41)
[2021-05-22] MEDS: Carvedilol 3.125 MG TAB PO SCH ×2 (08:41→15:53)
[2021-05-22] MEDS: Amino Acids 4.25 %/Dextrose 5% 1,000 ML IV SCH ×2 (11:01→16:46)
[2021-05-22] MEDS: Pantoprazole 40 MG VIAL IVP SCH (11:01)
== END 2021-05-22 17:09 | DRG 871 ==
LOC: ERS 11:37 → ERHOLD 16:41 → 2NO 20:17 → T4-A 05-12 19:00
PROVIDERS: ADMIT Hospitalist; ATTEND Internal Medicine
DX: A41.9 Sepsis, unspecified organism (principal); G93.41 Metabolic encephalopathy; F23 Brief psychotic disorder; N30.00 Acute cystitis without hematuria; Z23 Encounter for immunization; Z20.822 Contact with and (suspected) exposure to COVID-19; F20.9 Schizophrenia, unspecified; F79 Unspecified intellectual disabilities; E78.5 Hyperlipidemia, unspecified; G20 Parkinson's disease; K21.9 Gastro-esophageal reflux disease without esophagitis; N18.2 Chronic kidney disease, stage 2 (mild); I12.9 Hypertensive chronic kidney disease with stage 1 through stage 4 chronic kidney disease, or unspecified chronic kidney disease; R62.7 Adult failure to thrive; E78.2 Mixed hyperlipidemia; Z88.8 Allergy status to other drugs, medicaments and biological substances; Z79.899 Other long term (current) drug therapy; Z79.82 Long term (current) use of aspirin; Z68.26 Body mass index [BMI] 26.0-26.9, adult; R73.9 Hyperglycemia, unspecified
CPT/HCPCS: 36415; 36416; 51701; 70450; 71045; 74018; 80048; 80053; 80306; 80307; 81003; 81015; 82553; 83605; 83735; 83880; 84443; 84481; 84484; 85025; 87040; 87086; 90471; 90732; 93005; 93306; 93970; 96365; 96372; 96375; C9113; G0009; J0360; J0696; J1200; J1630; J1650; J2060; J2358; J3475; J3480; J3486; J3490; J7042; J7050; U0003; U0005